=== PATIENT | male | born 1985 ===

== ENCOUNTER 2022-11-18 20:01 | Outpatient (REF) | payer OTHER, SELFPAY ==
[2022-11-18 15:47] LABS: ESR 2 mm/hr (0-15)
[2022-11-18 15:48] LABS: Absolute Basophil Count 0.02 10^3/uL (0.0-0.2); Absolute Eosinophil Count 0.21 10^3/uL (0.0-0.7); Absolute Lymphocyte Count 1.79 10^3/uL (1.2-3.4); Absolute Monocyte Count 0.51 10^3/uL (0.1-0.8); Absolute Neutrophil Count 1.64 10^3/uL (1.2-6.7); Basophils % 0.5; HCT 44.9 % (40.0-50.0); HGB 15.1 g/dL (13.5-17.5); Lymphocytes % 42.9; MCH 32.3 pg (27.0-33.0); MCHC 33.6 % (32.0-36.0); MCV 96 fL (80-95); MPV 11.9 fL (8.0-11.0); Monocytes % 12.2; Neutrophils % 39.4; Platelet Count 186 10^3/uL (130-400); RBC 4.67 10^6/uL (4.36-5.78); RDW-SD 46.3 fL; WBC 4.17 10^3/uL (4.4-10.8)
[2022-11-18 16:25] LABS: ALT 57 U/L (16-63); AST 28 U/L (15-37); Albumin 4.4 g/dL (3.4-5.0); Alkaline Phosphatase 59 U/L (46-116); Anion Gap 9.9 mmol/L (3-11); BUN 12 mg/dL (7-18); Bilirubin, Total 0.9 mg/dL (0.2-1.0); CO2 25.1 mmol/L (21.0-32.0); CREATININE 0.9 mg/dL (0.70-1.30); Calcium 9.5 mg/dL (8.5-10.1); Chloride 102 mmol/L (98-107); Estimated GFR 113.51 (mL/min/1.73m2); Glucose 106 mg/dL (74-106); Potassium 4.2 mmol/L (3.5-5.1); Sodium 137 mmol/L (136-145); TSH 5.89 uIU/mL (0.36-3.74); Total Protein 7.8 g/dL (6.4-8.2)
== END 2022-11-18 20:02 | disposition home or self-care (01) ==
LOC: NCHCN 20:01
PROVIDERS: Visit Provider Family Medicine
DX: Z00.00 Encounter for general adult medical examination without abnormal findings (principal); R53.82 Chronic fatigue, unspecified
CPT/HCPCS: 80053; 85652; 84443; 85025